=== PATIENT | female | born 1970 | race Caucasian/White ===

== ENCOUNTER 2018-08-13 22:27 | Emergency (ER) | payer OTHER ==
[~2018-08-13] VITALS: Wt 119.1 kg
[~2018-08-13 22:27] MED LIST: GLIM2TAB PO; HYDR-3498 PO; LANT3I SC; LEVO50TA89 PO; LISI2.5T59 PO; METF-849 PO; ONDA4TAB35 PO; SIMV5TAB14 PO
[2018-08-13 22:44] VITALS: BP 139/63; PULSE 80; RESP 18
--- NOTE | 2018-08-14 | ERD ---
ER Documentation Chief Complaint Chief Complaint right facial numbness/facial droop x 1 hour. 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 The patient does not endorse any alleviating or exacerbating factors. She does not endorse any other focal deficits. She does not endorse any weakness or numbness or tingling to her extremities. She is ambulatory without issue. The patient denies being sick recently. The patient denies fever or chills. The patient has had no headache or vision changes. The patient does not endorse neck or back pain. The patient denies lightheadedness or dizziness. The patient has had no chest pain or trouble breathing. The patient denies nausea or vomiting. The patient denies abdominal pain. The patient denies changes to bowel movements or urination. ROS All systems reviewed and are negative except as per history of present illness. Medications Home Meds Active Scripts Glimepiride* (Glimepiride*) 2 Mg Tablet, 2 MG PO WITH BREAKFAST, #15 TAB Prov:KATHERINE SNYDER PLATINUM AND PALLADIUM KETTLE TENDER 10/24/15 Ondansetron Hcl* (Zofran* ODT) 4 mg -ODT Tab.disper, 4 MG PO Q8 PRN for NAUSEA AND/OR VOMITING, #30 TAB Prov:KATHERINE SNYDER [employer]ATINUM AND PALLADIUM KETTLE TENDER 10/24/15 Hydrocodone Bit-Acetaminophen* ([place]*) 5-325 Mg Tab, 1 TAB PO Q6 PRN for PAIN, #20 TAB Prov:KATHERINE SNYDER PLATINUM AND PALLADIUM KETTLE TENDER 10/24/15 Reported Medications Metformin* (Glucophage*) Unknown Strength Tab, PO WITH MEALS, #90 TAB 10/24/15 Insulin Glargine* (Lantus*) Unknown Strength Soln, SC DAILY, #1 VIAL 10/24/15 Simvastatin* (Simvastatin*) Unknown Strength Tablet, PO QHS, #30 TAB 10/24/15 Lisinopril* (Lisinopril*) Unknown Strength Tablet, PO DAILY, #30 TAB 10/24/15 Levothyroxine Sodium* (Synthroid*) Unknown Strength Tablet, PO BEFORE BREAKFAST, #30 TAB 10/24/15 Allergies Allergies: Coded Allergies: No Known Allergy (Unverified , 10/23/15) PMhx/Soc History of Surgery: No Anesthesia Reaction: No Hx Neurological Disorder: No Hx Respiratory Disorders: No Hx Cardiac Disorders: Yes (Hypertension, hyperlipidemia, diabetes) Hx Psychiatric Problems: No Hx Miscellaneous Medical Probl: Yes (Hypothyroidism, uterine cyst) Hx Alcohol Use: No Hx Substance Use: No Hx Tobacco Use: No FmHx Family History: diabetes Physical Exam Vitals Vital Signs Date Temp Pulse Resp B/P (MAP) Pulse Ox O2 O2 Flow FiO2 Time Delivery Rate 08/13/18 98.0 80 18 139/63 97 22:44 (88) Physical Exam Const: No apparent distress, well-developed, well-nourished Head: Normocephalic, Atraumatic Eyes: Normal Conjunctiva. Extraocular movements intact. Pupils equal, round and reactive to light ENT: Normal External Ears, Nose and Mouth. Neck: Full range of motion. No meningismus. Resp: Clear to auscultation bilaterally, No wheezes, rales or rhonchi Cardio: Regular rate and rhythm. No murmurs, rubs or gallops Abd: Soft, non tender, non distended. Normal bowel sounds Skin: No petechiae or rashes Back: No midline tenderness. No CVA tenderness Ext: No cyanosis, or edema Neur: Awake and alert, oriented 4. Right-sided facial droop with forehead/eyelid involvement. Otherwise, cranial nerves intact. Normal strength, sensation and coordination. Psych: Normal Mood and Affect Procedures/MDM MDM Previous medical records, if available, were reviewed. The patient presents with right-sided facial complaints including decreased sensation and a mild right-sided facial droop with forehead involvement. I do have high suspicion for Chu's palsy. The patient does not have any other deficits. I do not suspect cerebral ischemia. The patient does not have symptoms concerning for an other intracranial pathology. I do not suspect cellulitis or abscess or other soft tissue bacterial infection. The patient's eyes not involved. She does not endorse any ocular pain or any visual acuity deficits. I have low suspicion for herpes ophthalmicus. She does report having tearing relating to not being able to keep her eyelid closed. The patient was instructed to wear an eye patch in the evening to protect her eye. TREATMENT/DISPOSITION The patient did not require any emergent treatment. DISCHARGE Upon reevaluation of the patient, symptoms have improved. No emergent diagnoses were identified. At this time, I feel that the patient stable for discharge. The patient was instructed to follow-up with a primary care physician in 1-3 days. The patient will be given strict precautions with which to return to the emergency department. Prescriptions: Prednisone, acyclovir The patient's blood pressure was elevated at greater than 120/80 while in the emergency department. The patient was otherwise stable with no evidence of hypertensive urgency or emergency. The patient does not require admission for blood pressure control. I have discussed with the patient the risks of hypertension. I have instructed the patient to return to the ER for any new or worsening symptoms including chest pain, shortness of breath, headache, blurred vision, confusion, nausea, vomiting or LOC. I have advised the patient to follow up with the primary care physician for outpatient monitoring and treatment for hypertension in 1-3 days. Disclaimer: Inadvertent spelling and grammatical errors are likely due to EHR/dictation software use and do not reflect on the overall quality of patient care. Note that the electronic time recorded on this note does not necessarily reflect the actual time of the patient encounter. Departure Diagnosis: Primary Impression: Chu's palsy Condition: Stable Patient Instructions: Chu's Palsy Additional Instructions: Thank you for for coming to [facility] for your care today. Please ask your nurse or provider if you have questions about your care today and do not leave until all your questions have been answered. Please use any medications given as directed and follow-up with your doctor (or the doctor you were referred to) in the next 1-3 days. If you do not have a primary care doctor you may follow up at the [facility] [place] [facility] (listed below). You may also use motrin and tylenol as needed for fever and/or pain unless instructed otherwise by your provider or nurse. Indications for more urgent follow-up have been discussed, but you may return to the Emergency Department at ANY time for any worrisome or worsening symptoms. If you have abdominal pain, please know that no test or exam you received is perfect and you should follow up within 8 hours for continued pain. If you had any imaging studies today, such as an X-Ray or CT Scan, these studies will be reviewed later by a radiologist. You will be called if there are important findings that were not identified today, so make sure the contact information you provided at registration is correct. If you received any narcotic pain control medicine today, such as Vicodin, Morphine or Dilaudid, your coordination and judgment may be affected for a number of hours. Please do not drive or operate heavy machinery, and you may want someone to assist you at home. If you were given a prescription for narcotic medication, be aware that it is very addictive- use sparingly and only if necessary. PLEASE SEEK FURTHER EVALUATION AND MANAGEMENT AT YOUR DOCTORS OFFICE WITHIN THE NEXT 1-3 DAYS. IT IS YOUR RESPONSIBILITY TO MAKE AN APPOINTMENT FOR FOLOW-UP CARE. IF YOU HAVE A PRIMARY DOCTOR, PLEASE CALL THEIR OFFICE TO SCHEDULE AN APPOINTMENT FOR FOLLOW UP. IF YOU DO NOT HAVE A PRIMARY DOCTOR YOU CAN CALL OUR PHYSICIAN REFERRAL HOTLINE AT IF YOU CAN NOT AFFORD TO SEE A PHYSICIAN YOU CAN CHOSE FROM THE FOLLOWING [facility]: [facility] [address] [facility] [facility] [address] [facility] [facility] [address] [facility] [facility] [address] [facility]. [facility] [address] [facility]. [facility]. [address] ALANNA GARDNER MD Aug 13, 2018 23:54
[2018-08-14] MEDS ORDERED: ACYC400T2 PO (00:02)
[2018-08-14] MEDS ORDERED: PRED20TA PO (00:02)
== END 2018-08-14 00:09 | disposition home or self-care (01) ==
LOC: E/R 22:27
DX: G51.0 Bell's palsy (principal); I10 Essential (primary) hypertension; E03.9 Hypothyroidism, unspecified; E11.9 Type 2 diabetes mellitus without complications; Z79.4 Long term (current) use of insulin
CPT/HCPCS: 99283